=== PATIENT | female | born 1950 | race Caucasian/White ===

== ENCOUNTER 2017-02-25 17:48 | Inpatient (IN) | payer OTHER, MEDICARE ==
[~2017-02-25] VITALS: Ht 162.6 cm; Wt 65.0 kg
[2017-02-25 17:57] VITALS: BP 147/82; PULSE 107; RESP 16; TEMP 98.2; O2SAT 100
[2017-02-25] MEDS ORDERED: ATOR40TA16 PO (18:10)
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
[2017-02-25] MEDS ORDERED: LIDOCAINE HCL 1% 50 ML VIAL INFIL ONE (18:15)
[2017-02-25] MEDS ORDERED: TETANUS/DIPHTHERIA TOXOID ADULT 0.5 ML VIAL IM ONE (18:15)
[2017-02-25 18:53] LABS: AUTOMATED NEUTROPHIL # 9.9 TH/MM3 (1.8-7.7); BASOPHIL % 0.3 % (0.0-2.0); EOSINOPHIL # 0.1 TH/MM3 (0-0.4); HEMATOCRIT 40.5 % (35.0-46.0); HEMOGLOBIN 14.1 GM/DL (11.6-15.3); LYMPH % 6.3 % (9.0-44.0); LYMPHOCYTE # 0.7 TH/MM3 (1.0-4.8); MEAN CELL VOLUME 89.6 FL (80.0-100.0); MEAN CORPUSCULAR HEMOGLOBIN 31.2 PG (27.0-34.0); MEAN CORPUSCULAR HGB CONC 34.8 % (32.0-36.0); MEAN PLATELET VOLUME 9.8 FL (7.0-11.0); MONO % 6.3 % (0.0-8.0); MONOCYTE # 0.7 TH/MM3 (0-0.9); NEUT % 86.1 % (16.0-70.0); PLATELET COUNT 285 TH/MM3 (150-450); RED BLOOD COUNT 4.52 MIL/MM3 (4.00-5.30); RED CELL DISTRIBUTION WIDTH 13.1 % (11.6-17.2); WHITE BLOOD COUNT 11.5 TH/MM3 (4.0-11.0)
[2017-02-25] MEDS ORDERED: MIDAZOLAM HCL 2 MG/2 ML VIAL IV PUSH ONE (19:00)
--- NOTE | 2017-02-25 19:11 | PD ---
Data Data Last Documented VS Vital Signs Date Time Temp Pulse Resp B/P (MAP) Pulse Ox O2 Delivery O2 Flow Rate FiO2 02/25/17 17:57 98.2 107 16 147/82 (103) 100 Orders Orders Complete Blood Count With Diff (02/25/17 18:03) Comprehensive Metabolic Panel (02/25/17 18:03) Psych Screen (02/25/17 18:03) Drug Screen, Random Urine (02/25/17 18:03) Alcohol (Ethanol) (02/25/17 18:03) Tetanus/Diphtheria Tox Adult (Tetanus/Di (02/25/17 18:15) Lidocaine 1% Inj (50 Ml) (Xylocaine 1% I (02/25/17 18:15) Cefazolin Inj (Ancef Inj) (02/25/17 18:15) Midazolam Inj (Versed Inj) (02/25/17 19:00) Labs Laboratory Tests Test 02/25/17 16:32 02/25/17 18:18 Urine Opiates Screen NEG Urine Barbiturates Screen NEG Urine Amphetamines Screen NEG Urine Benzodiazepines Screen NEG Urine Cocaine Screen NEG Urine Cannabinoids Screen NEG White Blood Count 11.5 TH/MM3 Red Blood Count 4.52 MIL/MM3 Hemoglobin 14.1 GM/DL Hematocrit 40.5 % Mean Corpuscular Volume 89.6 FL Mean Corpuscular Hemoglobin 31.2 PG Mean Corpuscular Hemoglobin Concent 34.8 % Red Cell Distribution Width 13.1 % Platelet Count 285 TH/MM3 Mean Platelet Volume 9.8 FL Neutrophils (%) (Auto) 86.1 % Lymphocytes (%) (Auto) 6.3 % Monocytes (%) (Auto) 6.3 % Eosinophils (%) (Auto) 1.0 % Basophils (%) (Auto) 0.3 % Neutrophils # (Auto) 9.9 TH/MM3 Lymphocytes # (Auto) 0.7 TH/MM3 Monocytes # (Auto) 0.7 TH/MM3 Eosinophils # (Auto) 0.1 TH/MM3 Basophils # (Auto) 0.0 TH/MM3 CBC Comment DIFF FINAL Differential Comment MDM Supervised Visit with CLEO: Yes Narrative Course The history, exam, and medical decision-making in the associated midlevel provider note were completed with my assistance. I reviewed and agree with the findings presented. I attest that I had a [id number] encounter with the patient on the same day, and personally performed and documented my assessment and findings in the medical record. *My assessment and Findings: This is a 66-year-old female who presents to the emergency department under a Ledesma act for schizophrenia. She has bizarre behavior and paranoid delusions. She does have a significant avulsion injury flap to her left hand with no neurovascular or tendon injury evident. This will be repaired by the nurse practitioner. Patient will be evaluated by psychiatry. Kelly Velazquez MD Feb 25, 2017 19:11
[2017-02-25 21:05] VITALS: BP 150/81; PULSE 94; RESP 20; TEMP 97.9; O2SAT 98
[2017-02-25 22:25] VITALS: BP 149/76; PULSE 84; RESP 22
[2017-02-25 22:41] LABS: BACTERIA, URINE FEW /hpf; BILIRUBIN, URINE NEG (NEG); BLOOD, URINE NEG (NEG); CALCIUM OXALATE CRYSTALS,URINE OCC /hpf; GLUCOSE,URINE NEG (NEG); KETONE, URINE 10 mg/dL (NEG); MUCUS URINE MOD /lpf (OCC); NITRITE,URINE NEG (NEG); PH, URINE 5.5 (5.0-8.5); SQUAMOUS EPITHELIAL CELL URINE 6 /hpf (0-5); URINE COLOR YELLOW (YELLW/STRAW); URINE LEUKOCYTE ESTERASE LARGE (NEG)
[2017-02-25 22:46] LABS: ALBUMIN 4.2 GM/DL (3.4-5.0); ALT (GPT) 56 U/L (10-53); AST (GOT) 53 U/L (15-37); BICARBONATE 23.7 MEQ/L (21.0-32.0); BLOOD UREA NITROGEN 12 MG/DL (7-18); CALCIUM 9.3 MG/DL (8.5-10.1); CHLORIDE 105 MEQ/L (98-107); CREATININE 0.84 MG/DL (0.50-1.00); GLOMERULAR FILTRATION RATE 68 ML/MIN (>89); GLUCOSE,RANDOM 92 MG/DL (74-106); SODIUM (NA) 138 MEQ/L (136-145)
[2017-02-25 22:49] LABS: ALKALINE PHOSPHATASE 84 U/L (45-117); TOTAL BILIRUBIN ADULT 0.7 MG/DL (0.2-1.0); TOTAL PROTEIN 7.6 GM/DL (6.4-8.2)
[2017-02-25] MEDS ORDERED: OLANZapine IM 10 MG VIAL IM ONE ×2 (23:15→23:30)
[2017-02-25] MEDS ORDERED: diphenhydrAMINE HCL 50 MG/ML VIAL - HS PRN IM (23:30)
[2017-02-25] MEDS ORDERED: ALUMINUM/MAGNESIUM/SIMETH 30 ML CUP PO PRN (23:30)
[2017-02-25] MEDS ORDERED: LORazepam 0.5 MG TAB age > 65 yrs PO PRN (23:30)
[2017-02-25] MEDS ORDERED: MAGNESIUM HYDROXIDE SUSP 30 ML CUP PO PRN (23:30)
[2017-02-25] MEDS ORDERED: diphenhydrAMINE HCL 50 MG CAP - HS PRN PO (23:30)
[2017-02-26] MEDS: CEPHALEXIN MONOHYDRATE 500 MG CAP PO SCH ×5 (05:27→23:16)
[2017-02-26 06:05] VITALS: BP 151/74; PULSE 121; RESP 18; TEMP 98.3; O2SAT 99
[2017-02-26] MEDS: ACETAMINOPHEN 325 MG TAB PO PRN ×2 (08:36→16:00)
[2017-02-26] MEDS: NICOTINE 21 MG/24 HR PATCH T-DERMAL SCH (09:00)
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
--- NOTE | 2017-02-26 12:52 | PD.WCN.NOT ---
Wound Consult Description: Consult for WOUND MANAGEMENT of L wrist avulsion injury per Dr Ramires. Recommendation: Per [facility] Artis notes, Sutures placed on left hand, left wrist, are to be kept clean and dry. May cleanse sutures with NS and pat dry. May cover sutures with single layer Xeroform, 4x4, secured with rolled gauze and change daily and PRN when soiled. Additional Information: Patient not seen for intact sutures to left hand and wrist. Please keep sutures clean and dry per AL[facility] Abrams. Riddhi Herron [facility] Feb 26, 2017 12:52
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
[2017-02-26 16:26] LABS: ALBUMIN 3.6 GM/DL (3.4-5.0); ALKALINE PHOSPHATASE 73 U/L (45-117); ALT (GPT) 51 U/L (10-53); AST (GOT) 55 U/L (15-37); BICARBONATE 28.4 MEQ/L (21.0-32.0); BLOOD UREA NITROGEN 16 MG/DL (7-18); CALCIUM 8.7 MG/DL (8.5-10.1); CHLORIDE 105 MEQ/L (98-107); CREATININE 0.83 MG/DL (0.50-1.00); GLOMERULAR FILTRATION RATE 69 ML/MIN (>89); GLUCOSE,RANDOM 116 MG/DL (74-106); SODIUM (NA) 137 MEQ/L (136-145); TOTAL BILIRUBIN ADULT 0.7 MG/DL (0.2-1.0); TOTAL PROTEIN 6.8 GM/DL (6.4-8.2)
[2017-02-26 16:30] LABS: AUTOMATED NEUTROPHIL # 6.3 TH/MM3 (1.8-7.7); BASOPHIL % 0.3 % (0.0-2.0); EOSINOPHIL # 0.1 TH/MM3 (0-0.4); EOSINOPHIL % 1.3 % (0.0-4.0); LYMPH % 13.2 % (9.0-44.0); LYMPHOCYTE # 1.1 TH/MM3 (1.0-4.8); MEAN CELL VOLUME 89.2 FL (80.0-100.0); MEAN CORPUSCULAR HEMOGLOBIN 30.6 PG (27.0-34.0); MEAN CORPUSCULAR HGB CONC 34.3 % (32.0-36.0); MEAN PLATELET VOLUME 9.7 FL (7.0-11.0); MONO % 11.9 % (0.0-8.0); NEUT % 73.3 % (16.0-70.0); PLATELET COUNT 244 TH/MM3 (150-450); RED BLOOD COUNT 3.92 MIL/MM3 (4.00-5.30); RED CELL DISTRIBUTION WIDTH 12.9 % (11.6-17.2); WHITE BLOOD COUNT 8.5 TH/MM3 (4.0-11.0)
--- NOTE | 2017-02-26 16:54 | RADRPT ---
EXAM DATE/TIME: 02/26/2017 16:29 [place] COMPARISON: No previous studies available for comparison. INDICATIONS : Altered mental status. RADIATION DOSE: 47.09 CTDIvol (mGy) MEDICAL HISTORY : Schizophrenia SURGICAL HISTORY : None. ENCOUNTER: Initial ACUITY: 1 day PAIN SCALE: 0/10 LOCATION: cranial TECHNIQUE: Multiple contiguous axial images were obtained of the head. Using automated exposure control and adj ustment of the mA and/or kV according to patient size, radiation dose was kept as low as reasonably a chievable to obtain optimal diagnostic quality images. DICOM format image data is available electro nically for review and comparison. FINDINGS: CEREBRUM: The ventricles are normal for age. No evidence of midline shift, mass lesion, hemorrhage or acute in farction. No extra-axial fluid collections are seen. POSTERIOR FOSSA: The cerebellum and brainstem are intact. The 4th ventricle is midline. The cerebellopontine angle i s unremarkable. EXTRACRANIAL: The visualized portion of the orbits is intact. SKULL: The calvaria is intact. No evidence of skull fracture. CONCLUSION: Negative for acute process. Duong Vergara MD FACR on February 26, 2017 at 16:51 Board Certified Radiologist. This report was verified electronically.
[2017-02-26 18:00] VITALS: BP 118/65; PULSE 80; RESP 18; TEMP 98.4
[2017-02-26] MEDS: MELATONIN 5 MG TAB PO PRN (20:13)
[2017-02-26] MEDS: REMOVE OLD NICOTINE PATCH T-DERMAL SCH (21:00)
[2017-02-26] MEDS ORDERED: ATORVASTATIN 40 MG TAB PO SCH (21:00)
[2017-02-26] MEDS: diphenhydrAMINE HCL 25 MG CAP PO PRN (23:16)
[2017-02-27] MEDS: CEPHALEXIN MONOHYDRATE 500 MG CAP PO SCH ×3 (05:37→18:00)
[2017-02-27 05:54] VITALS: BP 151/70; PULSE 89; RESP 16; TEMP 98.2; O2SAT 99
[2017-02-27 06:05] VITALS: BP 151/70; PULSE 89; RESP 16; TEMP 98.2; O2SAT 99
[2017-02-27] MEDS: NICOTINE 21 MG/24 HR PATCH T-DERMAL SCH (09:00)
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
[2017-02-27] MEDS ORDERED: POTASSIUM CHLORIDE 10 MEQ CONTROLLED RELEASE TAB PO ONE (10:30)
[2017-02-27] MEDS: risperiDONE ODT 0.25 MG TAB PO SCH ×2 (10:30→21:00)
--- NOTE | 2017-02-27 13:17 | EKG ---
Date Performed: 02/26/2017 Time Performed: 18:57:11 PTAGE: 66 years EKG: Sinus rhythm WITH SINUS ARRHYTHMIA NORMAL ECG NO PREVIOUS TRACING DOCTOR: Jacoby Buckley Interpretating Date/Time 02/27/2017 13:16:20
[2017-02-27 15:19] LABS: BICARBONATE 31.1 MEQ/L (21.0-32.0); BLOOD UREA NITROGEN 12 MG/DL (7-18); CALCIUM 9.1 MG/DL (8.5-10.1); CHLORIDE 105 MEQ/L (98-107); CHOLESTEROL 139 MG/DL (120-200); CREATININE 0.81 MG/DL (0.50-1.00); GLOMERULAR FILTRATION RATE 71 ML/MIN (>89); GLUCOSE,RANDOM 88 MG/DL (74-106); SODIUM (NA) 141 MEQ/L (136-145)
[2017-02-27 15:30] LABS: CHOLESTEROL/ HDL RATIO 2.13 RATIO; HDL CHOLESTEROL 65.2 MG/DL (40.0-60.0); LDL CHOLESTEROL 56 MG/DL (0-99); TRIGLYCERIDES 87 MG/DL (42-150)
[2017-02-27] MEDS: CHOLECALCIFEROL (VIT D3) 1000 UNIT TAB PO SCH (16:15)
[2017-02-27 17:15] LABS: HEMOGLOBIN A1C 5.2 % (4.3-6.0)
[2017-02-27] MEDS: REMOVE OLD NICOTINE PATCH T-DERMAL SCH (21:00)
[2017-02-27] MEDS: ACETAMINOPHEN 325 MG TAB PO PRN (22:54)
[2017-02-28] MEDS ORDERED: OLANZapine IM 10 MG VIAL IM ONE (00:15)
[2017-02-28] MEDS ORDERED: diphenhydrAMINE HCL 50 MG/ML VIAL IM ONE (02:30)
[2017-02-28] MEDS ORDERED: HALOPERIDOL LACTATE 5 MG/ML AMP IM ONE (02:30)
[2017-02-28] MEDS ORDERED: LORazepam 2 MG/ML VIAL IM ONE (02:30)
[2017-02-28] MEDS: CEPHALEXIN MONOHYDRATE 500 MG CAP PO SCH ×5 (06:00→22:15)
[2017-02-28 06:03] VITALS: BP 151/67; PULSE 109; RESP 18; TEMP 97.8; O2SAT 95
[2017-02-28] MEDS: NICOTINE 21 MG/24 HR PATCH T-DERMAL SCH (08:47)
[2017-02-28] MEDS: CHOLECALCIFEROL (VIT D3) 1000 UNIT TAB PO SCH (08:47)
[2017-02-28] MEDS: risperiDONE ODT 0.25 MG TAB PO SCH (09:00)
[2017-02-28] MEDS ORDERED: hydrALAZINE HCL 10 MG TAB PO PRN (10:30)
[2017-02-28 12:32] LABS: BICARBONATE 27.9 MEQ/L (21.0-32.0); CALCIUM 9.4 MG/DL (8.5-10.1); CREATININE 0.66 MG/DL (0.50-1.00); MAGNESIUM 2.4 MG/DL (1.5-2.5)
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
[2017-02-28] MEDS ORDERED: OLANZapine IM 10 MG VIAL IM PRN ×2 (14:00→14:15)
[2017-02-28] MEDS ORDERED: diphenhydrAMINE HCL 50 MG/ML VIAL IM PRN (14:15)
[2017-02-28] MEDS: diphenhydrAMINE HCL 25 MG CAP PO PRN (17:38)
[2017-02-28] MEDS: HALOPERIDOL LACTATE 5 MG/ML AMP IM PRN (17:38)
[2017-02-28] MEDS: REMOVE OLD NICOTINE PATCH T-DERMAL SCH (21:00)
[2017-02-28] MEDS ORDERED: OLANZapine ODT 5 MG TAB PO SCH (21:00)
[2017-03-01] MEDS: diphenhydrAMINE HCL 25 MG CAP PO PRN ×2 (03:29→20:05)
[2017-03-01] MEDS: MELATONIN 5 MG TAB PO PRN ×2 (03:29→20:05)
[2017-03-01] MEDS: CEPHALEXIN MONOHYDRATE 500 MG CAP PO SCH ×4 (05:31→23:55)
[2017-03-01 06:03] VITALS: BP 157/73; PULSE 72; RESP 16; TEMP 97.8; O2SAT 100
[2017-03-01] MEDS: NICOTINE 21 MG/24 HR PATCH T-DERMAL SCH (08:25)
[2017-03-01] MEDS: CHOLECALCIFEROL (VIT D3) 1000 UNIT TAB PO SCH (09:02)
--- NOTE | 2017-03-01 11:16 | HHI.PYPN ---
Subjective Chief Complaint: Psychosis/Possible NCD Remarks Patient seen and case discussed with nursing staff. Chart reviewed. Patient did require Haldol PRN yesterday afternoon. For me today, patient is intrusive and confused. Speech is rambling and thought process remains disorganized. No evident side effects from medications. No physical complaints. Review of Systems ROS Limitations: Psychotic, Poor Historian Except as stated in HPI: all other systems reviewed are Neg Mental Status Examination Appearance: Disheveled Consciousness: Alert Orientation: Person, Place (at least) Motor Activity: Normal gait, Other (no motoric abnormalities appreciated) Speech: Unremarkable Language: Adequate Fund of Knowledge: Inadequate Attention and Concentration: Easily Distracted Memory: Impaired Mood: Anxious Affect: Anxious Thought Process & Associations: Disorganized Thought Content: Bizarre thinking Hallucination Type: Other (remains internally preoccupied) Delusion Type: Bizarre, Paranoid Suicidal Ideation: No (no SI voiced) Homicidal Ideation: No (no HI voiced) Insight: Poor Judgment: Poor Results Labs Test 02/28/17 11:23 Blood Urea Nitrogen 14 MG/DL Creatinine 0.66 MG/DL Random Glucose 112 MG/DL Calcium Level 9.4 MG/DL Magnesium Level 2.4 MG/DL Sodium Level 140 MEQ/L Potassium Level 4.3 MEQ/L Chloride Level 107 MEQ/L Carbon Dioxide Level 27.9 MEQ/L Anion Gap 5 MEQ/L Estimat Glomerular Filtration Rate 90 ML/MIN Date/Time Source Procedure Growth Status 02/25/17 16:32 Urine Clean Catch Urine Culture - Final 50-100,000 CFU/ML MIXED GRAM POSITIVE... Complete Labs reviewed. BMP and magnesium level unremarkable. Vitals/IOs Vital Signs Date Time Temp Pulse Resp B/P (MAP) Pulse Ox O2 Delivery O2 Flow Rate FiO2 03/01/17 06:03 97.8 72 16 157/73 (101) 100 Intake and Output 03/01/17 03/01/17 03/02/17 08:00 16:00 00:00 Intake Total 360 ml Balance 360 ml Assessment & Plan Problem List: (1) Dementia with behavioral disturbance ICD Codes: F03.91 - Unspecified dementia with behavioral disturbance Assessment & Plan Titrate Zyprexa to 7.5mg qHS to manage psychosis in setting of suspected neurocognitive disorder. Continue to monitor on inpatient unit. Continue other medications and care as ordered. Patient's case was presented to the [place] [facility] and the patient was retained on the unit with a LO guardian. Justification for Cont. Inpt. Medication changes. Impairment in reality construction. High risk for decompensation in less restrictive environment. Discharge Planning Pending psychiatric stabilization. Request HC Surrog/Guard Advoc?: Yes Problem Qualifiers (1) Dementia with behavioral disturbance: Qualified Codes: F03.91 - Unspecified dementia with behavioral disturbance Keyur Ramires MD Mar 01, 2017 11:16
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
[2017-03-01] MEDS ORDERED: OLANZapine IM 10 MG VIAL IM PRN (13:45)
[2017-03-01] MEDS: HALOPERIDOL LACTATE 5 MG/ML AMP IM PRN (14:20)
[2017-03-01 18:00] VITALS: BP 131/61; PULSE 84; RESP 18; TEMP 97.9; O2SAT 99
[2017-03-01] MEDS: OLANZapine 2.5 MG TAB PO SCH (20:05)
[2017-03-01] MEDS: REMOVE OLD NICOTINE PATCH T-DERMAL SCH (20:10)
[2017-03-02] MEDS: CEPHALEXIN MONOHYDRATE 500 MG CAP PO SCH ×4 (05:38→23:11)
[2017-03-02 06:16] VITALS: BP 153/70; PULSE 88; RESP 18; TEMP 97.8; O2SAT 98
[2017-03-02] MEDS: NICOTINE 21 MG/24 HR PATCH T-DERMAL SCH (07:49)
[2017-03-02] MEDS: CHOLECALCIFEROL (VIT D3) 1000 UNIT TAB PO SCH (07:49)
[2017-03-02] MEDS: HALOPERIDOL LACTATE 5 MG/ML AMP IM PRN ×2 (10:32→11:47)
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
[2017-03-02] MEDS: OLANZapine 2.5 MG TAB PO SCH ×2 (12:49→21:03)
[2017-03-02 12:59] LABS: HEPATITIS A AB IGM NEGATIVE (NEGATIVE); HEPATITIS B CORE AB IGM NEGATIVE (NEGATIVE); HEPATITIS B SURFACE ANTIGEN NEGATIVE (NEGATIVE); HEPATITIS C AB IgG NEGATIVE (NEGATIVE)
--- NOTE | 2017-03-02 14:16 | PD.TTN ---
Patient Problems 1. Discharge planning 2. Medication compliance 3. Knowledge deficit 4. Lack of coping skills Progress Toward Goals Provider Present: Dr. Caesar Ramires Provider Input: 03/02/17 - Dr. Ramires requested that this counselor contact patient's family for collateral information and to learn if patient has been dementing for a while and what the family's plan is for the patient's future. reported he will add a mornind dose of Zyperxa. Psychiatric Counselors Present: TERRY Walker Psych Therapist Input: 03/02/17 - Counselor will contact patient's niece, or Aunt for collateral information and to discuss disposition options. Group Spec/RT/OT/CHAMBERLAIN Present: BULMARO Sylvester Group Spec/RT/OT/CHAMBERLAIN Input: 03/02/17 - Patient is unable to tolerate groups. Discharge Plan SMA Documentation Scribe: TERRY Walker Date Resolved: Mar 02, 2017 Amparo Robles Mar 02, 2017 14:16
[2017-03-02 18:19] VITALS: BP 147/93; PULSE 97; RESP 16; TEMP 98.4; O2SAT 98
[2017-03-02] MEDS: REMOVE OLD NICOTINE PATCH T-DERMAL SCH (20:58)
[2017-03-02] MEDS: diphenhydrAMINE HCL 25 MG CAP PO PRN (21:02)
[2017-03-02] MEDS: MELATONIN 5 MG TAB PO PRN (21:02)
[2017-03-03] MEDS: CEPHALEXIN MONOHYDRATE 500 MG CAP PO SCH ×3 (06:32→17:19)
[2017-03-03 06:44] VITALS: BP 144/64; PULSE 95; RESP 18; TEMP 98; O2SAT 97
[2017-03-03] MEDS: CHOLECALCIFEROL (VIT D3) 1000 UNIT TAB PO SCH (08:41)
[2017-03-03] MEDS: OLANZapine 2.5 MG TAB PO SCH ×2 (08:41→20:53)
[2017-03-03] MEDS: NICOTINE 21 MG/24 HR PATCH T-DERMAL SCH (08:41)
[2017-03-03] MEDS: HALOPERIDOL LACTATE 5 MG/ML AMP IM PRN (10:20)
--- NOTE | 2017-03-03 16:08 | HHI.PYPN ---
Subjective Chief Complaint: Psychosis/Possible NCD Remarks Patient was seen and case discussed with nursing. Patient is quite argumentative and oppositional. She demands on taking her dressing off but was willing to stay in her room after doing so. She is somewhat entitled. Loose associations. Denies hallucinations but could be responding. 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 Complete Vitals/IOs Vital Signs Date Time Temp Pulse Resp B/P (MAP) Pulse Ox O2 Delivery O2 Flow Rate FiO2 03/03/17 06:44 98.0 95 18 144/64 (90) 97 Intake and Output 03/03/17 03/03/17 03/04/17 08:00 16:00 00:00 Intake Total 480 ml Balance 480 ml Assessment & Plan Problem List: (1) Dementia with behavioral disturbance ICD Codes: F03.91 - Unspecified dementia with behavioral disturbance Assessment & Plan Continue current treatment plan Justification for Cont. Inpt. Patient will decompensate in a less restrictive setting Request HC Surrog/Guard Advoc?: Yes Problem Qualifiers (1) Dementia with behavioral disturbance: Qualified Codes: F03.91 - Unspecified dementia with behavioral disturbance Sharath Bell DO Mar 03, 2017 16:08
[2017-03-03 18:22] VITALS: BP 132/67; PULSE 103; RESP 18; TEMP 98; O2SAT 96
[2017-03-03] MEDS: MELATONIN 5 MG TAB PO PRN (20:53)
[2017-03-03] MEDS: REMOVE OLD NICOTINE PATCH T-DERMAL SCH (21:00)
[2017-03-04] MEDS: CEPHALEXIN MONOHYDRATE 500 MG CAP PO SCH ×4 (06:02→17:55)
[2017-03-04 06:41] VITALS: BP 127/58; PULSE 84; RESP 18; TEMP 97.8; O2SAT 97
[2017-03-04] MEDS: CHOLECALCIFEROL (VIT D3) 1000 UNIT TAB PO SCH (08:21)
[2017-03-04] MEDS: NICOTINE 21 MG/24 HR PATCH T-DERMAL SCH (08:23)
[2017-03-04] MEDS: OLANZapine 2.5 MG TAB PO SCH ×3 (08:23→21:28)
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
[2017-03-04] MEDS: diphenhydrAMINE HCL 25 MG CAP PO PRN ×2 (14:33→21:29)
[2017-03-04 18:09] VITALS: BP 152/60; PULSE 90; RESP 18; TEMP 96.4; O2SAT 97
[2017-03-04] MEDS: REMOVE OLD NICOTINE PATCH T-DERMAL SCH (21:00)
[2017-03-04] MEDS: MELATONIN 5 MG TAB PO PRN (21:29)
[2017-03-05 06:43] VITALS: BP 151/68; PULSE 81; RESP 17; TEMP 97.9; O2SAT 99
[2017-03-05] MEDS: CHOLECALCIFEROL (VIT D3) 1000 UNIT TAB PO SCH (08:47)
[2017-03-05] MEDS: OLANZapine 2.5 MG TAB PO SCH (08:48)
[2017-03-05] MEDS: NICOTINE 21 MG/24 HR PATCH T-DERMAL SCH (08:48)
--- NOTE | 2017-03-05 10:40 | HHI.PR ---
Subjective Remarks Follow up for left hand skin laceration. The patient is seen ambulating the halls, brought back to her room in presence of RN. Left hand dressing removed. RN and patient report some increased redness and swelling surrounding the laceration. Denies any fevers/chills. Denies any other medical complaints. Tolerating oral intake. She is requesting to be moved to a room "downstairs". Objective Vitals Vital Signs Date Time Temp Pulse Resp B/P (MAP) Pulse Ox O2 Delivery O2 Flow Rate FiO2 03/05/17 06:43 97.9 81 17 151/68 (95) 99 03/04/17 18:09 96.4 90 18 152/60 (90) 97 I/O 03/04/17 03/04/17 03/04/17 03/05/17 03/05/17 03/05/17 07:00 15:00 23:00 07:00 15:00 23:00 Intake Total 600 ml 840 ml 720 ml 600 ml 240 ml Balance 600 ml 840 ml 720 ml 600 ml 240 ml Intake Oral 600 ml 840 ml 720 ml 600 ml 240 ml # Voids 3 1 2 2 Imaging Last Impressions Head CT 02/26/17 0000 Signed Impressions: Service Date/Time: Sunday, February 26, 2017 16:29 - CONCLUSION: Negative for acute process. Duong Vergara MD FACR Objective Remarks GENERAL: Well-nourished, well-developed female patient in [facility]. SKIN: Warm and dry. Left dorsal hand with laceration, repaired with sutures, surrounding +erythema/edema extending proximally to the wrist and distally to the MCP joints, with mild serosanguineous drainage. HEENT: Normocephalic. Atraumatic. Pupils equal and round. Mucous membranes pink and moist. CARDIOVASCULAR: Regular rate and rhythm. S1, S2 noted. No murmur appreciated. RESPIRATORY: No accessory muscle use. Clear to auscultation. Breath sounds equal bilaterally. GASTROINTESTINAL: Abdomen soft, non-tender, nondistended. Normoactive bowel sounds x4. MUSCULOSKELETAL: No obvious deformities. Extremities without clubbing, cyanosis , or edema. Able to make fist with left hand, 5/5 strength of all digits of left hand. NEUROLOGICAL: Awake and alert. No obvious cranial nerve deficits. Motor grossly within normal limits. Normal speech. Medications and IVs Current Medications Medications (Trade) Dose Ordered Sig/Josy Route Start Time Stop Time Status Last Admin (Tylenol) 650 mg Q4H PRN PO 02/25/17 23:30 02/27/17 22:54 (Milk Of Magnesia Liq) 30 ml DAILY PRN PO 02/25/17 23:30 (Mag-Al Plus Susp Liq) 30 ml Q6H PRN PO 02/25/17 23:30 (Habitrol 21 Mg Patch.24 Hr) 1 patch DAILY T-DERMAL 02/26/17 09:00 Miscellaneous Information 1 HS T-DERMAL 02/26/17 21:00 (Melatonin) 5 mg HS PRN PO 02/26/17 11:30 03/04/17 21:29 (Benadryl) 25 mg Q6H PRN PO 02/26/17 11:30 03/04/17 21:29 (Lipitor) 40 mg HS PO 02/26/17 21:00 Future Hold 02/26/17 20:13 (Vitamin D3) 2,000 units DAILY PO 02/27/17 10:30 03/05/17 08:47 (Apresoline) 10 mg Q6HR PRN PO 02/28/17 10:30 (Haldol Inj) 2 mg Q6H PRN IM 02/28/17 14:00 03/03/17 10:20 (Benadryl Inj) 25 mg Q6H PRN IM 02/28/17 14:15 03/03/17 10:29 (ZyPREXA INJ) 7.5 mg HS PRN IM 03/01/17 13:45 (ZyPREXA) 7.5 mg HS PO 03/01/17 21:00 03/04/17 21:28 (ZyPREXA) 2.5 mg DAILY PO 03/02/17 11:30 03/05/17 08:48 (Keflex) 500 mg Q8HR PO 03/05/17 14:00 UNV A/P Assessment and Plan 66-year-old female with a past medical history significant for schizophrenia and dyslipidemia who was admitted to inpatient psychiatric unit after she was brought into the ED under Ledesma act by law-enforcement due to the patient threatening her son. Schizophrenia, Acute psychosis, Medication noncompliance - Management per psychiatric team Transaminitis - Mild, asymptomatic. Patient denies any complaints of nausea, vomiting or abdominal pain. - Hold statin therapy - Would not have patient resume statin therapy until liver function tests reevaluated by primary care physician as outpatient Skin laceration left hand/wrist with Cellulitis - per wound care, cleanse sutures with NS, pat dry, cover with single layer Xeroform, 4x4, secured with rolled gauze and change daily and PRN when soiled. - Recommend suture removal in 10-14 days. - Continued on Keflex (started 02/26) however will also add Bactrim (started 03/05) Bacteruria - Patient asymptomatic - Given IV ceftriaxone in the ED - Culture showing gram positive will, probable contaminants. Withhold antibiotics. DVT prophylaxis - Patient is ambulatory Nichol Zamarripa PA-C Mar 05, 2017 10:40 am
[2017-03-05] MEDS: SULFAMETHOXAZOLE-TRIMETHOPRIM DS 800-160 MG TAB PO SCH ×2 (11:19→20:54)
--- NOTE | 2017-03-05 12:04 | HHI.PYPN ---
Subjective Chief Complaint: Psychosis/Possible NCD Remarks Patient seen and examined with nurse. Chart reviewed. I note that the patient is sleeping poorly, no more than a few hours a night. She is eating okay, though. Case discussed with nursing staff who reports that patient was very reluctant to take her morning Zyprexa. On my examination today, the patient's thought process is marginally more organized. However, she remains intrusive, paranoid, and hyperverbal with rapid speech. She is discharge focused, but her insight and judgement remain quite poor in my estimation. She denies side effects from medications. No physical complaints. Review of Systems ROS Limitations: Psychotic, Poor Historian Except as stated in HPI: all other systems reviewed are Neg Mental Status Examination Appearance: Disheveled Consciousness: Alert Orientation: Person, Place Motor Activity: Normal gait, Other (no motor abnormalities appreciated) Speech: Rapid, Other (ongoing rambling speech) Language: Adequate Fund of Knowledge: Inadequate Attention and Concentration: Easily Distracted Memory: Impaired Mood: Anxious, Irritable Affect: Irritable, Anxious Thought Process & Associations: Circumstantial Thought Content: Bizarre thinking, Delusional Hallucination Type: None Delusion Type: Paranoid Suicidal Ideation: No (unreliable to contract for safety) Homicidal Ideation: No (unreliable to contract for safety) Insight: Poor Judgment: Poor Results Labs Date/Time Source Procedure Growth Status 02/25/17 16:32 Urine Clean Catch Urine Culture - Final 50-100,000 CFU/ML MIXED GRAM POSITIVE... Complete Labs reviewed. Vitals/IOs Vital Signs Date Time Temp Pulse Resp B/P (MAP) Pulse Ox O2 Delivery O2 Flow Rate FiO2 03/05/17 06:43 97.9 81 17 151/68 (95) 99 Intake and Output 03/05/17 03/05/17 03/06/17 08:00 16:00 00:00 Intake Total 240 ml Balance 240 ml Assessment & Plan Problem List: (1) Dementia with behavioral disturbance ICD Codes: F03.91 - Unspecified dementia with behavioral disturbance Assessment & Plan Titrate nighttime dose of Zyprexa to 10 mg for mood stabilization, antipsychotic action and to assist with sleep. Continue morning dose of Zyprexa unchanged for now, although we may consider titrating this as well. Continue to monitor on inpatient unit. Hospitalist input noted and appreciated. Continue other medications and care as ordered. Justification for Cont. Inpt. Med changes. Impairment in reality construction. High risk for decompensation in less restrictive environment. Discharge Planning Pending psychiatric stabilization Request HC Surrog/Guard Advoc?: Yes Problem Qualifiers (1) Dementia with behavioral disturbance: Qualified Codes: F03.91 - Unspecified dementia with behavioral disturbance Keyur Ramires MD Mar 05, 2017 12:04
[2017-03-05] MEDS: CEPHALEXIN MONOHYDRATE 500 MG CAP PO SCH ×2 (13:48→21:53)
[2017-03-05 17:53] VITALS: BP 125/88; PULSE 89; RESP 18; TEMP 98.4; O2SAT 100
[2017-03-05] MEDS: OLANZapine 10 MG TAB PO SCH (20:54)
[2017-03-05] MEDS: REMOVE OLD NICOTINE PATCH T-DERMAL SCH (20:56)
[2017-03-05] MEDS: diphenhydrAMINE HCL 25 MG CAP PO PRN (23:28)
[2017-03-06] MEDS: HALOPERIDOL LACTATE 5 MG/ML AMP IM PRN ×2 (02:42→15:55)
[2017-03-06 05:48] VITALS: BP 137/63; PULSE 73; RESP 16; TEMP 97.6; O2SAT 98
[2017-03-06] MEDS: CEPHALEXIN MONOHYDRATE 500 MG CAP PO SCH ×3 (06:09→21:25)
--- NOTE | 2017-03-06 07:43 | HHI.PYPN ---
Subjective Chief Complaint: Psychosis/Possible NCD Remarks Patient seen and examined with nursing staff. Chart reviewed. Case discussed with nurse. Overnight, the patient slept poorly and was quite agitated and disruptive. She threatened to put blood on the nurse from her hand wound and was medicated with Haldol p.r.n.. She slept only 1 hour last night. On my examination today, the patient presents as intrusive, rambling and confused. She is distractible and pacing around the unit. She is trying to remove the dressing from her hand wound and says "I don't need a butterfly" although the bandage is not in fact a butterfly bandage. Reports dry mouth from medications but otherwise denies side effects. No physical complaints. Review of Systems ROS Limitations: Psychotic, Poor Historian Except as stated in HPI: all other systems reviewed are Neg Mental Status Examination Appearance: Other (Fair) Consciousness: Alert Orientation: Person, Place Motor Activity: Normal gait, Other (No hand tremor or other motor abnormalities noted.) Speech: Rapid, Other (remains rambling) Language: Adequate Fund of Knowledge: Inadequate Attention and Concentration: Easily Distracted Memory: Impaired Mood: Oppositional, Anxious Affect: Irritable, Labile, Anxious Thought Process & Associations: Loose associations Thought Content: Bizarre thinking Hallucination Type: None Delusion Type: None Suicidal Ideation: No (remains unreliable to contract for safety) Homicidal Ideation: No (remains unreliable to contract for safety) Insight: Poor Judgment: Poor Results Labs Labs reviewed. No new labs. Vitals/IOs Vital Signs Date Time Temp Pulse Resp B/P (MAP) Pulse Ox O2 Delivery O2 Flow Rate FiO2 03/06/17 05:48 97.6 73 16 137/63 (87) 98 Intake and Output 03/06/17 03/06/17 03/07/17 08:00 16:00 00:00 Intake Total 480 ml Balance 480 ml Assessment & Plan Problem List: (1) Dementia with behavioral disturbance ICD Codes: F03.91 - Unspecified dementia with behavioral disturbance Assessment & Plan Patient with ongoing behavioral disturbance in setting of suspected neurocognitive disorder. However, with the benefit of further observation, patient's psychiatric disturbance seems to have features of e.g. a mixed or manic state. Patient has an uncertain psychiatric history. Thus, while some degree of neurocognitive disorder is suspected, I will request a neuropsychology consultation to try to get a sense of how much of patient's poor performance on mental status testing can be attributed to dementing illness and how much to more episodic psychiatric disturbance as this will have considerable impact on treatment and disposition planning. In the meantime, I will titrate Zyprexa to 5mg qAM and 10mg qHS as patient is tolerating this agent well. Biotene p.r.n. dry mouth. Continue to monitor on geropsychiatric unit. Continue other medications and care as ordered. Justification for Cont. Inpt. Medication changes. Concern for impairment in self-care, particularly in less restrictive setting. High risk for decompensation in less restrictive environment. Discharge Planning To be determined. I will discuss the case in treatment team with associate media planner today. Request HC Surrog/Guard Advoc?: Yes Problem Qualifiers (1) Dementia with behavioral disturbance: Qualified Codes: F03.91 - Unspecified dementia with behavioral disturbance Keyur Ramires MD Mar 06, 2017 07:43
[2017-03-06] MEDS: CHOLECALCIFEROL (VIT D3) 1000 UNIT TAB PO SCH (08:11)
[2017-03-06] MEDS: OLANZapine 2.5 MG TAB PO SCH (08:11)
[2017-03-06] MEDS: SULFAMETHOXAZOLE-TRIMETHOPRIM DS 800-160 MG TAB PO SCH ×2 (08:12→20:32)
[2017-03-06] MEDS: NICOTINE 21 MG/24 HR PATCH T-DERMAL SCH (08:16)
--- NOTE | 2017-03-06 14:52 | PD.HHIRCNE ---
Disclaimer Patient was given an explanation of the nature and purpose of the evaluation. Patient agreed to proceed with the evaluation and treatment plan. History Reason for Referral The patient is a 66 year old left handed female who was Ledesma Acted on 2016 with delusions of believing her son was replaced by an imposter. The patient reportedly has a history of schizophrenia with ECT in the past, but this impression is not substantiated. On admission, her MOCA score was 10/30. Since her admission, she has remained agitated, wanting to leave with minimal insight and awareness. Her WBC is normal and her NA is 140. Her admission head CT was within normal limits. She is now referred for baseline neuropsychological evaluation to assess cognitive, behavioral and emotional aspects of the injury and to provide treatment recommendations. As background, she graduated high school with no reports of learning difficulties, grade repetitions or behavioral issues. She reportedly attended one year of college but did not earn a degree. 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 She reported that she is single, never , and has two children. She said she lives in an apartment in [place], [place]. 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 Prior Living Setting: Home Past Surgical/Medical History Past Surgery: No Major surgery in last 100 days: Unknown Hx Seizures: No Hx of Cardiovascular Prob: No ?: Not Hx Diabetes: No Hx of Hearing or Ear Problems: No Hx Dental Problems: No Hx Psychiatric Problems: No Blood Transfusion History Will receive Blood /Blood prod: Yes Medication Active Medications Cephalexin Monohydrate (Keflex) 500 mg Q8HR PO Last administered on 03/06/17 13:45; Admin Dose 500 MG; Start 03/05/17 at 14:00; Stop 03/12/17 at 23:00 Olanzapine (ZyPREXA) 5 mg DAILY PO Last administered on 03/06/17 08:11; Admin Dose 5 MG; Start 03/06/17 at 09:00 Olanzapine (ZyPREXA) 10 mg HS PO Last administered on 03/05/17 20:54; Admin Dose 10 MG; Start 03/05/17 at 21:00 Mental Status Assessment Orientation: oriented to Self, oriented to Place, oriented to Time, disoriented to Situation Mental Status: WFL: Language/Interactions, Learning/Memory, Visuospatial/ Construction, Impaired: Thought processing, Attention, Problem-Solving Adjustment/Coping Assessment Adjustment/Coping: None: Depression, Anxiety, Pain, Apathy, Severe: Awareness, Insight Observation In terms of emotional functioning, the patient demonstrated challenges. This patient demonstrated no signs of impulsivity, but she did appear somewhat agitated and disinhibited; there was remarkable evidence of a formal thought disorder or psychosis, specifically related to her complete lack of understanding and insight into the reasons for her present hospitalization. There was no evidence of depression or anxiety. The Geriatric Depression Scale- Short Form was administered given the ease to which it is administered to persons with known neurological pathology, and the patient endorsed 0 of 15 symptoms, which falls within the non depressed range. Thought content was free from suicidal or homicidal ideation, positive for paranoid ideation related to malevolent ideas attributed to her son concerning her present hospitalization, and thought processes were tangential and concrete. The patients mood was anxious and her affect was intense. The patient appears to possess very poor insight and awareness into her situation and within the limits of this brief evaluation, poor judgment. LTG Status: Deferred STG Status: Deferred Team Members: Physician, Neuropsychologist Effort Assessment Effort: Average Cognition Assessment Rating: WFL: Language, Immediate & Delayed Memor, Visual Perception, Spatial Judgement, Variable: Attention/Processing, Impaired: Executive, Awareness- Insight Adjustm Observation The patient was alert and oriented to person, place and time but not clearly concerning the circumstances surrounding the recent hospitalization. The Mini- Mental State Exam was administered, and the patient obtained a score of 27 out of 30 points, which falls in the normal range. Of note, this score represents an improvement compared to her MOCA on her initial admission. However, on further evaluation, specific deficits were identified. In terms of attention skills, the patient exhibited challenges. The patient was able to remain on task and remember basic and many complex verbal instructions. The patient was not able to spell WORLD backwards although her inability to do so could be attributed to the testing environment. In terms of memory functioning, the patient exhibited normal abilities. The patients initial registration of verbal information was relatively normal, and the patient was able to improve her memory with repetition. After a period of delay, the patient was able to recall the majority of this information from memory and recognition cues further facilitated her recall ability. More specifically, on the Luria Memory Words Test-Short Form, the patients trial one performance was 4 of 7 words, trial five performance was 7 of 7 words, the patients Total Learning score was 28 (above cut-off), and the patients Delayed recall score was 4 of 7 words ( above cut-off). In terms of speech and language skills, the patient demonstrated normal abilities. The patients initiated spontaneous conversation throughout the assessment. Speech was characterized by adequate prosody, grammar, articulation, volume and rate. No remarkable dysnomic or paraphasic errors were noted either during conversational speech or on confrontation naming tasks. Reading recognition skills were adequate, as were writing skills. The patients comprehension for basic one- and two-stage commands was normal as well as for basic verbal instructions. Furthermore, the patient earned an Index score of 84 (percentile rank of 14) on the Reading subtest of the WRAT-4. This score is essentially consistent with baseline expectations of her intellectual functioning as a whole. In terms of problem- solving skills, the patient exhibited challenges. The patients ability to understand abstraction reasoning was abnormal as reflected in her inability to abstract essential shared characteristics of objects and concepts. Her mathematical reasoning skills were also abnormal, due in large part to her fluctuating attention skills. Speed of information processing, as evaluated by both the Letter and Category Fluency Tests was below normal. In terms of visuospatial/constructional abilities, the patient performance was relatively normal. Finally, there was no evidence of ideomotor apraxia or constructional difficulties during this brief evaluation. Summary/Diagnosis Summary This 66 year old woman admitted under Ledesma Act on 02/26/2017 for delusional ideation related to believing that her son was replaced by an imposter. Metabolic studies were normal as were head CT. Her neuropsychological evaluation, albeit brief and complicated by test ecology issues (loud room) yet still considered a valid assessment overall, demonstrates primary deficit of executive function, processing speed, abstract reasoning, thought processing and ability to focus and sustain attention, although in general her memory, learning and language skills are intact. Intellectually, she should function in the Low Average range from a baseline perspective. Her admission MOCA score was 10, and today her MMSE score was 27, clearly an improvement. 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 Historically, she has a prior diagnosis of unknown psychiatric difficulties, perhaps some disorder on the schizophrenic spectrum for which executive dysfunction of the type she exhibits often plays a part. 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 Diagnostically, I do not believe she has a primary dementing disorder (owing that her memory is too intact and she is without demonstrable neuroimaging findings), but certainly her executive dysfunction in light of and exacerbated her history of psychiatric state leads to the conclusion that she does have a neurocognitive component to her clinical presentation. Diagnosis: (1) Executive function deficit Recommendations Recommendations Recommendations In terms of recommendations, in her present clinical state, it is my clinical opinion that this patient does not exhibit cognitive decision making capacity to make decisions of a legal, financial or medical nature at this point in time. She demonstrates the impaired ability to appreciate a situation and its likely consequences, and she demonstrates the impaired ability to manipulate information rationally. It would be my clinical opinion that this patient requires additional psychiatric treatment to restore her back to her condition prior to her hospitalization, and in fact her improvement on basic psychometric studies thus far demonstrate that anticipated clinical improvement. She will require psychiatric follow-up when she is finally discharged, and she will need to be compliant with her medication regimen. Additional clinical investigations could be beneficial to the current diagnostic formulation. Specifically, PET or SPECT to ascertain whether there are areas of hypometabolism present to suggest a neurodegenerative cause, although the overall treatment approach will unlikely deviate from the current course. Session Attendance Variance 60 minutes. Martínez Ashton PhD Mar 06, 2017 2:52 pm
[2017-03-06 18:32] VITALS: BP 119/68; PULSE 72; RESP 18; TEMP 98.3; O2SAT 99
[2017-03-06] MEDS: OLANZapine 10 MG TAB PO SCH (20:32)
[2017-03-06] MEDS: diphenhydrAMINE HCL 25 MG CAP PO PRN (20:32)
[2017-03-06] MEDS: REMOVE OLD NICOTINE PATCH T-DERMAL SCH (20:37)
[2017-03-07] MEDS: HALOPERIDOL LACTATE 5 MG/ML AMP IM PRN (03:02)
[2017-03-07 05:55] VITALS: BP 129/61; PULSE 75; RESP 17; TEMP 98; O2SAT 98
[2017-03-07] MEDS: CEPHALEXIN MONOHYDRATE 500 MG CAP PO SCH ×3 (06:07→23:03)
[2017-03-07] MEDS: SULFAMETHOXAZOLE-TRIMETHOPRIM DS 800-160 MG TAB PO SCH ×2 (08:34→20:17)
[2017-03-07] MEDS: OLANZapine 2.5 MG TAB PO SCH (08:34)
[2017-03-07] MEDS: CHOLECALCIFEROL (VIT D3) 1000 UNIT TAB PO SCH (08:34)
[2017-03-07] MEDS: NICOTINE 21 MG/24 HR PATCH T-DERMAL SCH (08:37)
--- NOTE | 2017-03-07 11:23 | HHI.PYPN ---
Subjective Chief Complaint: Psychosis/Possible NCD Remarks Patient seen and examined with nurse. Chart reviewed. Case discussed with nursing staff reports the patient required Haldol p.r.n. overnight as the patient was disrobing. On my examination today, the patient is fidgety, distractible, impulsive and quite intrusive. She is extremely discharge focused and even tries to get out through the day area door instead of returning from the consulting room to the unit, although she is able to be redirected onto the unit by nurse and myself. Affect is irritable and dysphoric. I did have a discussion with the patient about her differential diagnosis and treatment plan at a level appropriate to her degree of psychiatric impairment, and she does now admit to a history of bipolar diagnosis in the past. Denies side effects from medications. Resistant to further medication management however. No physical complaints. Review of Systems ROS Limitations: Poor Historian Except as stated in HPI: all other systems reviewed are Neg Mental Status Examination Appearance: Other (Fair) Consciousness: Alert Orientation: Person, Place Motor Activity: Normal gait, Other (no abnormal motor movements noted) Speech: Rapid (and rambling) Language: Adequate Fund of Knowledge: Inadequate Attention and Concentration: Easily Distracted Memory: Impaired Mood: Oppositional, Other (dysphoric) Affect: Irritable, Anxious, Other (dysphoric) Thought Process & Associations: Loose associations Thought Content: Bizarre thinking Hallucination Type: None Delusion Type: None Suicidal Ideation: No (unreliable to contract for safety) Homicidal Ideation: No (unreliable to contract for safety) Insight: Poor Judgment: Poor Results Labs Labs reviewed. No new labs. Vitals/IOs Vital Signs Date Time Temp Pulse Resp B/P (MAP) Pulse Ox O2 Delivery O2 Flow Rate FiO2 03/07/17 05:55 98.0 75 17 129/61 (83) 98 Assessment & Plan Problem List: (1) Bipolar disorder, current episode mixed, severe, without psychotic features ICD Codes: F31.63 - Bipolar disorder, current episode mixed, severe, without psychotic features (2) Executive function deficit ICD Codes: R41.844 - Frontal lobe and executive function deficit Assessment & Plan Dr. Ashton's input reviewed in detail and appreciated. He does not suspect a dementing illness, and with the benefit of further observation I am inclined to agree. The form of patient's mental illness presently is most consistent with a severely decompensated, mixed bipolar disorder. She may have been more floridly psychotic on initial presentation although this is somewhat attenuated now. I agree that there is likely some degree of underlying executive function deficit. I have adjusted the diagnosis accordingly. Given this new information , I think it is appropriate to focus the treatment more on mood stabilization. I will check a CBC and CMP for platelet count and LFTs, respectively, in advance of a trial of Depakote. [Update: LFTs and plt ok.] Plan to start Depakote DR 250 mg twice daily with plans to check a Depakote and ammonia level after the appropriate interval. Continue Zyprexa as ordered. Continue to monitor on the inpatient unit. Hospitalist input noted and appreciated. Continue other medications and care as ordered. Justification for Cont. Inpt. medication changes. High risk for decompensation in less restrictive environment. Discharge Planning Pending psychiatric stabilization. Case discussed with counselor who has spoken with patient's son who reportedly would like to have the patient back at home once psychiatrically stabilized. Request HC Surrog/Guard Advoc?: Yes Keyur Ramires MD Mar 07, 2017 11:23
--- NOTE | 2017-03-07 13:23 | HHI.PR ---
Subjective Remarks Decreased erythema. Improved healing. Sutures not yet ready for removal at day 7. Objective Vital Signs Date Time Temp Pulse Resp B/P (MAP) Pulse Ox O2 Delivery O2 Flow Rate FiO2 03/07/17 05:55 98.0 75 17 129/61 (83) 98 03/06/17 18:32 98.3 72 18 119/68 (85) 99 I/O 03/06/17 03/06/17 03/06/17 03/07/17 03/07/17 03/07/17 07:00 15:00 23:00 07:00 15:00 23:00 Intake Total 880 ml 720 ml 240 ml Balance 880 ml 720 ml 240 ml Intake Oral 880 ml 720 ml 240 ml # Voids 5 Other Results GENERAL: NAD, A&Ox3 HEAD: Normocephalic. NECK: Supple, trachea midline. No lymphadenopathy. EYES: No scleral icterus. No injection or drainage. CARDIOVASCULAR: Regular rate and rhythm without murmurs, gallops, or rubs. RESPIRATORY: Breath sounds equal bilaterally. No accessory muscle use. GASTROINTESTINAL: Abdomen soft, non-tender, nondistended. MUSCULOSKELETAL: No cyanosis, or edema. SKIN: Warm and dry. Lacerations with sutures on the dorsum of left hand. NEURO: No focal neurological deficitis. A/P Problem List: (1) Executive function deficit ICD Code: R41.844 - Frontal lobe and executive function deficit (2) Dementia with behavioral disturbance ICD Code: F03.91 - Unspecified dementia with behavioral disturbance (3) Major neurocognitive disorder due to Alzheimer's disease, possible ICD Code: G30.9 - Alzheimer's disease, unspecified; F02.80 - Dementia in other diseases classified elsewhere without behavioral disturbance (4) Medical clearance for psychiatric admission ICD Code: Z00.8 - Encounter for other general examination Status: Acute (5) Hand laceration ICD Code: S61.419A - Laceration without foreign body of unspecified hand, initial encounter Status: Acute Assessment and Plan Assessment and Plan 66-year-old female admitted secondary to schizophrenia, following for left hand laceration. Schizophrenia Acute psychosis Medication noncompliance Continue Management per psychiatric team Transaminitis Holding Statin Skin laceration left hand Left Hand Cellulitis Continue wound care Sutures not yet ready for removal at a 7 Continue Keflex Continue Bactrim Bacteruria No specific bacteria grew Patient is on Keflex and Bactrim as above DVT prophylaxis Continue ambulation Problem Qualifiers (1) Dementia with behavioral disturbance: Qualified Codes: F03.91 - Unspecified dementia with behavioral disturbance (2) Hand laceration: Qualified Codes: S61.412A - Laceration without foreign body of left hand, initial encounter Robert Siddiqui MD Mar 07, 2017 13:23
[2017-03-07 13:24] LABS: AUTOMATED NEUTROPHIL # 4.1 TH/MM3 (1.8-7.7); BASOPHIL % 0.6 % (0.0-2.0); EOSINOPHIL # 0.4 TH/MM3 (0-0.4); EOSINOPHIL % 5.8 % (0.0-4.0); HEMOGLOBIN 11.5 GM/DL (11.6-15.3); LYMPH % 20.5 % (9.0-44.0); LYMPHOCYTE # 1.3 TH/MM3 (1.0-4.8); MEAN CELL VOLUME 89.1 FL (80.0-100.0); MEAN CORPUSCULAR HGB CONC 33.7 % (32.0-36.0); MONO % 7.7 % (0.0-8.0); MONOCYTE # 0.5 TH/MM3 (0-0.9); NEUT % 65.4 % (16.0-70.0); PLATELET COUNT 346 TH/MM3 (150-450); RED BLOOD COUNT 3.82 MIL/MM3 (4.00-5.30); RED CELL DISTRIBUTION WIDTH 13.1 % (11.6-17.2); WHITE BLOOD COUNT 6.3 TH/MM3 (4.0-11.0)
[2017-03-07 13:38] LABS: ALBUMIN 3.1 GM/DL (3.4-5.0); AST (GOT) 36 U/L (15-37); BICARBONATE 26.9 MEQ/L (21.0-32.0); BLOOD UREA NITROGEN 14 MG/DL (7-18); CALCIUM 8.6 MG/DL (8.5-10.1); CHLORIDE 105 MEQ/L (98-107); CREATININE 0.93 MG/DL (0.50-1.00); GLOMERULAR FILTRATION RATE 60 ML/MIN (>89); GLUCOSE,RANDOM 116 MG/DL (74-106); SODIUM (NA) 139 MEQ/L (136-145)
[2017-03-07 13:43] LABS: ALKALINE PHOSPHATASE 88 U/L (45-117); ALT (GPT) 36 U/L (10-53); TOTAL BILIRUBIN ADULT 0.3 MG/DL (0.2-1.0); TOTAL PROTEIN 6.5 GM/DL (6.4-8.2)
[2017-03-07 18:11] VITALS: BP 151/68; PULSE 87; RESP 16; TEMP 98; O2SAT 99
[2017-03-07] MEDS: DIVALPROEX SODIUM DELAYED RELEASE 250 MG TAB PO SCH (20:17)
[2017-03-07] MEDS: diphenhydrAMINE HCL 25 MG CAP PO PRN (20:17)
[2017-03-07] MEDS: OLANZapine 10 MG TAB PO SCH (20:18)
[2017-03-07] MEDS: REMOVE OLD NICOTINE PATCH T-DERMAL SCH (21:00)
[2017-03-07] MEDS: MELATONIN 5 MG TAB PO PRN (23:03)
[2017-03-08] MEDS: HALOPERIDOL LACTATE 5 MG/ML AMP IM PRN (02:01)
[2017-03-08 06:00] VITALS: BP 153/67; PULSE 87; RESP 17; TEMP 97.4; O2SAT 99
[2017-03-08] MEDS: CEPHALEXIN MONOHYDRATE 500 MG CAP PO SCH ×3 (06:16→21:23)
[2017-03-08] MEDS: SULFAMETHOXAZOLE-TRIMETHOPRIM DS 800-160 MG TAB PO SCH ×2 (08:27→21:23)
[2017-03-08] MEDS: OLANZapine 2.5 MG TAB PO SCH (08:27)
[2017-03-08] MEDS: CHOLECALCIFEROL (VIT D3) 1000 UNIT TAB PO SCH (08:27)
[2017-03-08] MEDS: DIVALPROEX SODIUM DELAYED RELEASE 250 MG TAB PO SCH ×2 (08:28→21:23)
[2017-03-08] MEDS: NICOTINE 21 MG/24 HR PATCH T-DERMAL SCH (09:00)
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
[2017-03-08 21:00] VITALS: BP 128/58; PULSE 73; RESP 18; O2SAT 95
[2017-03-08] MEDS: REMOVE OLD NICOTINE PATCH T-DERMAL SCH (21:00)
[2017-03-09] MEDS: diphenhydrAMINE HCL 25 MG CAP PO PRN (01:04)
[2017-03-09] MEDS: MELATONIN 5 MG TAB PO PRN ×2 (01:04→21:10)
[2017-03-09 06:00] VITALS: BP 113/66; PULSE 70; RESP 16; TEMP 97.8; O2SAT 96
[2017-03-09] MEDS: CEPHALEXIN MONOHYDRATE 500 MG CAP PO SCH ×3 (06:00→21:09)
[2017-03-09] MEDS: OLANZapine 2.5 MG TAB PO SCH (08:52)
[2017-03-09] MEDS: CHOLECALCIFEROL (VIT D3) 1000 UNIT TAB PO SCH (08:52)
[2017-03-09] MEDS: SULFAMETHOXAZOLE-TRIMETHOPRIM DS 800-160 MG TAB PO SCH ×2 (08:52→21:10)
[2017-03-09] MEDS: DIVALPROEX SODIUM DELAYED RELEASE 250 MG TAB PO SCH ×2 (08:53→21:10)
[2017-03-09] MEDS: NICOTINE 21 MG/24 HR PATCH T-DERMAL SCH (09:00)
[2017-03-09 10:05] LABS: AUTOMATED NEUTROPHIL # 4.6 TH/MM3 (1.8-7.7); BASOPHIL % 0.5 % (0.0-2.0); EOSINOPHIL # 0.4 TH/MM3 (0-0.4); EOSINOPHIL % 5.5 % (0.0-4.0); HEMATOCRIT 35.8 % (35.0-46.0); HEMOGLOBIN 12.2 GM/DL (11.6-15.3); LYMPH % 18.5 % (9.0-44.0); LYMPHOCYTE # 1.3 TH/MM3 (1.0-4.8); MEAN CELL VOLUME 90.6 FL (80.0-100.0); MEAN CORPUSCULAR HGB CONC 34.2 % (32.0-36.0); MEAN PLATELET VOLUME 9.1 FL (7.0-11.0); MONO % 9.1 % (0.0-8.0); MONOCYTE # 0.6 TH/MM3 (0-0.9); NEUT % 66.4 % (16.0-70.0); PLATELET COUNT 381 TH/MM3 (150-450); RED BLOOD COUNT 3.95 MIL/MM3 (4.00-5.30); RED CELL DISTRIBUTION WIDTH 13.2 % (11.6-17.2)
[2017-03-09 10:40] LABS: BICARBONATE 28.3 MEQ/L (21.0-32.0); CALCIUM 8.8 MG/DL (8.5-10.1); CREATININE 0.92 MG/DL (0.50-1.00)
--- NOTE | 2017-03-09 10:58 | HHI.PYPN ---
Subjective Chief Complaint: Psychosis/Possible NCD Remarks Patient seen and examined with nurse. Chart reviewed. Case discussed with nursing staff who reports that the patient passed an uneventful night and did not require any p.r.n.s. Case discussed in treatment team with counselor and occupational therapist, the latter of whom notes that the patient appears less delusional. On my examination today, the patient seems considerably calmer with medication adjustment. She is more appropriate and relevant in conversation. She does not verbalize any delusional material today. No SI or HI. Denies side effects from medications besides some dry mouth, and I have encouraged her to ask for the Biotene. No physical complaints otherwise. Review of Systems Except as stated in HPI: all other systems reviewed are Neg Mental Status Examination Appearance: Appropriate Consciousness: Alert Orientation: Person, Place, Date/Time (approximate) Motor Activity: Normal gait, Other (no motor abnormalities noted) Speech: Unremarkable Language: Adequate Fund of Knowledge: Adequate Attention and Concentration: Easily Distracted (but improving) Memory: Unremarkable Mood: Appropriate Affect: Appropriate Thought Process & Associations: Other (much more linear and logical today) Thought Content: Appropriate Hallucination Type: None Delusion Type: None Suicidal Ideation: No (no SI voiced) Homicidal Ideation: No (no HI voiced) Insight: Poor Judgment: Poor Results Labs Test 03/09/17 08:30 White Blood Count 7.0 TH/MM3 Red Blood Count 3.95 MIL/MM3 Hemoglobin 12.2 GM/DL Hematocrit 35.8 % Mean Corpuscular Volume 90.6 FL Mean Corpuscular Hemoglobin 31.0 PG Mean Corpuscular Hemoglobin Concent 34.2 % Red Cell Distribution Width 13.2 % Platelet Count 381 TH/MM3 Mean Platelet Volume 9.1 FL Neutrophils (%) (Auto) 66.4 % Lymphocytes (%) (Auto) 18.5 % Monocytes (%) (Auto) 9.1 % Eosinophils (%) (Auto) 5.5 % Basophils (%) (Auto) 0.5 % Neutrophils # (Auto) 4.6 TH/MM3 Lymphocytes # (Auto) 1.3 TH/MM3 Monocytes # (Auto) 0.6 TH/MM3 Eosinophils # (Auto) 0.4 TH/MM3 Basophils # (Auto) 0.0 TH/MM3 CBC Comment DIFF FINAL Differential Comment Blood Urea Nitrogen 18 MG/DL Creatinine 0.92 MG/DL Random Glucose 59 MG/DL Calcium Level 8.8 MG/DL Sodium Level 140 MEQ/L Potassium Level 3.6 MEQ/L Chloride Level 103 MEQ/L Carbon Dioxide Level 28.3 MEQ/L Anion Gap 9 MEQ/L Estimat Glomerular Filtration Rate 61 ML/MIN Date/Time Source Procedure Growth Status 02/25/17 16:32 Urine Clean Catch Urine Culture - Final 50-100,000 CFU/ML MIXED GRAM POSITIVE... Complete Labs reviewed. Anemia improved. GFR stable. Vitals/IOs Vital Signs Date Time Temp Pulse Resp B/P (MAP) Pulse Ox O2 Delivery O2 Flow Rate FiO2 03/09/17 06:00 97.8 70 16 113/66 (82) 96 Intake and Output 03/09/17 03/09/17 03/10/17 08:00 16:00 00:00 Intake Total 960 ml Balance 960 ml Assessment & Plan Problem List: (1) Bipolar disorder, current episode mixed, severe, with psychotic features ICD Codes: F31.64 - Bipolar disorder, current episode mixed, severe, with psychotic features (2) Executive function deficit ICD Codes: R41.844 - Frontal lobe and executive function deficit Assessment & Plan Patient seems to be improving with current Depakote/Zyprexa regimen. I will continue with current medications as ordered for now and plan to check a Depakote and ammonia level Sunday morning. However, should the patient's mood decompensate over the weekend, I would ask the weekend rounding physician to consider titrating the patient's Depakote. Continue to monitor on the inpatient unit. Continue other medications and care as ordered. Justification for Cont. Inpt. Risk for decompensation in less restrictive environment. Discharge Planning Pending psychiatric stabilization. Possible discharge after the weekend. Could consider HHC if patient is willing. Request HC Surrog/Guard Advoc?: Yes Keyur Ramires MD Mar 09, 2017 10:57
[2017-03-09 18:00] VITALS: BP 132/60; PULSE 84; RESP 18; TEMP 97.4; O2SAT 98
[2017-03-09] MEDS: REMOVE OLD NICOTINE PATCH T-DERMAL SCH (21:00)
[2017-03-10] MEDS: CEPHALEXIN MONOHYDRATE 500 MG CAP PO SCH ×3 (05:54→21:39)
[2017-03-10 06:28] VITALS: BP 140/60; PULSE 81; RESP 16; TEMP 97.9; O2SAT 98
[2017-03-10] MEDS: SULFAMETHOXAZOLE-TRIMETHOPRIM DS 800-160 MG TAB PO SCH ×2 (08:32→21:39)
[2017-03-10] MEDS: CHOLECALCIFEROL (VIT D3) 1000 UNIT TAB PO SCH (08:33)
[2017-03-10] MEDS: OLANZapine 2.5 MG TAB PO SCH (08:34)
[2017-03-10] MEDS: DIVALPROEX SODIUM DELAYED RELEASE 250 MG TAB PO SCH ×2 (08:36→21:39)
[2017-03-10] MEDS: NICOTINE 21 MG/24 HR PATCH T-DERMAL SCH (08:47)
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
--- NOTE | 2017-03-10 14:48 | HHI.PYPN ---
Subjective Chief Complaint: Psychosis/Possible NCD Remarks Pt seen and discussed with staff. She has been more calm and cooperative on unit. She remains delusional and confused but has been more oriented in reality. Compliant with medications. Mental Status Examination Appearance: Appropriate Consciousness: Alert Orientation: Person, Place, Date/Time (approximate) Motor Activity: Normal gait, Other (no motor abnormalities noted) Speech: Unremarkable Language: Adequate Fund of Knowledge: Adequate Attention and Concentration: Easily Distracted (but improving) Memory: Unremarkable Mood: Appropriate Affect: Appropriate Thought Process & Associations: Other (much more linear and logical today) Thought Content: Ideas of reference Hallucination Type: None Delusion Type: Paranoid (mild) Suicidal Ideation: No Homicidal Ideation: No Insight: Poor Judgment: Poor Results Labs Date/Time Source Procedure Growth Status 02/25/17 16:32 Urine Clean Catch Urine Culture - Final 50-100,000 CFU/ML MIXED GRAM POSITIVE... Complete Vitals/IOs Vital Signs Date Time Temp Pulse Resp B/P (MAP) Pulse Ox O2 Delivery O2 Flow Rate FiO2 03/10/17 06:28 97.9 81 16 140/60 (86) 98 Intake and Output 03/10/17 03/10/17 03/11/17 08:00 16:00 00:00 Intake Total 240 ml 240 ml Balance 240 ml 240 ml Assessment & Plan Problem List: (1) Bipolar disorder, current episode mixed, severe, with psychotic features ICD Codes: F31.64 - Bipolar disorder, current episode mixed, severe, with psychotic features (2) Executive function deficit ICD Codes: R41.844 - Frontal lobe and executive function deficit Assessment & Plan Pt improving. Continue current tx plan. Estimated LOS: days Justification for Cont. Inpt. risk of decompensation Request HC Surrog/Guard Advoc?: Yes Drea Friedman MD Mar 10, 2017 14:48
[2017-03-10 18:24] VITALS: BP 131/62; PULSE 82; RESP 16; TEMP 97.6; O2SAT 97
[2017-03-10] MEDS: REMOVE OLD NICOTINE PATCH T-DERMAL SCH (21:00)
[2017-03-10] MEDS: diphenhydrAMINE HCL 25 MG CAP PO PRN (21:39)
[2017-03-11] MEDS: CEPHALEXIN MONOHYDRATE 500 MG CAP PO SCH ×3 (06:00→21:54)
[2017-03-11 06:06] VITALS: BP 147/64; PULSE 80; RESP 16; TEMP 97.5; O2SAT 99
[2017-03-11] MEDS: SULFAMETHOXAZOLE-TRIMETHOPRIM DS 800-160 MG TAB PO SCH ×2 (08:36→21:54)
[2017-03-11] MEDS: OLANZapine 2.5 MG TAB PO SCH (08:36)
[2017-03-11] MEDS: CHOLECALCIFEROL (VIT D3) 1000 UNIT TAB PO SCH (08:36)
[2017-03-11] MEDS: NICOTINE 21 MG/24 HR PATCH T-DERMAL SCH (09:00)
[2017-03-11] MEDS: DIVALPROEX SODIUM DELAYED RELEASE 250 MG TAB PO SCH ×2 (09:00→21:55)
--- NOTE | 2017-03-11 14:07 | HHI.PYPN ---
Subjective Chief Complaint: Psychosis/Possible NCD Remarks Pt seen and discussed with staff. She was labile and agitated last night. Today she has been calm and more organized. She expresses some paranoid ideations. No SI/HI. She is compliant with medications and tolerating without side effects. Mental Status Examination Appearance: Appropriate Consciousness: Alert Orientation: Person, Place, Date/Time (approximate) Motor Activity: Normal gait, Other (no motor abnormalities noted) Speech: Unremarkable Language: Adequate Fund of Knowledge: Adequate Attention and Concentration: Adequate Memory: Unremarkable Mood: Appropriate Affect: Appropriate Thought Process & Associations: Other (much more linear and logical today) Thought Content: Ideas of reference Hallucination Type: None Delusion Type: Paranoid Suicidal Ideation: No Homicidal Ideation: No Insight: Poor Judgment: Poor Results Labs Date/Time Source Procedure Growth Status 02/25/17 16:32 Urine Clean Catch Urine Culture - Final 50-100,000 CFU/ML MIXED GRAM POSITIVE... Complete Vitals/IOs Vital Signs Date Time Temp Pulse Resp B/P (MAP) Pulse Ox O2 Delivery O2 Flow Rate FiO2 03/11/17 06:06 97.5 80 16 147/64 (91) 99 Assessment & Plan Problem List: (1) Bipolar disorder, current episode mixed, severe, with psychotic features ICD Codes: F31.64 - Bipolar disorder, current episode mixed, severe, with psychotic features (2) Executive function deficit ICD Codes: R41.844 - Frontal lobe and executive function deficit Assessment & Plan Continue current tx plan. Estimated LOS: days Justification for Cont. Inpt. risk of decompensation Request HC Surrog/Guard Advoc?: Yes Drea Friedman MD Mar 11, 2017 14:07
[2017-03-11 17:10] VITALS: BP 114/53; PULSE 73; RESP 18; TEMP 98.1; O2SAT 99
[2017-03-11] MEDS: REMOVE OLD NICOTINE PATCH T-DERMAL SCH (21:00)
[2017-03-11] MEDS: MELATONIN 5 MG TAB PO PRN (21:55)
[2017-03-12 05:57] VITALS: BP 124/64; PULSE 72; RESP 18; TEMP 98; O2SAT 98
[2017-03-12] MEDS: CEPHALEXIN MONOHYDRATE 500 MG CAP PO SCH ×3 (06:12→20:39)
[2017-03-12 08:23] LABS: BICARBONATE 28.9 MEQ/L (21.0-32.0); CALCIUM 8.8 MG/DL (8.5-10.1); CREATININE 0.8 MG/DL (0.50-1.00)
[2017-03-12] MEDS: NICOTINE 21 MG/24 HR PATCH T-DERMAL SCH (09:00)
[2017-03-12] MEDS: DIVALPROEX SODIUM DELAYED RELEASE 250 MG TAB PO SCH (09:28)
[2017-03-12] MEDS: SULFAMETHOXAZOLE-TRIMETHOPRIM DS 800-160 MG TAB PO SCH (09:28)
[2017-03-12] MEDS: CHOLECALCIFEROL (VIT D3) 1000 UNIT TAB PO SCH (09:28)
[2017-03-12] MEDS: OLANZapine 2.5 MG TAB PO SCH (09:28)
--- NOTE | 2017-03-12 11:04 | HHI.PR ---
Subjective Remarks Follow up on patient with left hand laceration. Patient seen and examined. Patient states she is doing well. She is anxious to go back home and back to work. She denies any fever or chills. She denies any acute medical complaints. Discussed with GAIL Roger, no acute issues noted. 7 remaining sutures removed. Objective Vitals Vital Signs Date Time Temp Pulse Resp B/P (MAP) Pulse Ox O2 Delivery O2 Flow Rate FiO2 03/12/17 05:57 98.0 72 18 124/64 (84) 98 03/11/17 17:10 98.1 73 18 114/53 (73) 99 Result Diagram: 03/09/17 0830 03/12/17 0740 Imaging Last Impressions Head CT 02/26/17 0000 Signed Impressions: Service Date/Time: Sunday, February 26, 2017 16:29 - CONCLUSION: Negative for acute process. Duong Vergara MD FACR Objective Remarks GENERAL: Well-nourished, well-developed female patient in NAD. Awake and alert. SKIN: Warm and dry. Left dorsal hand with laceration, repaired with sutures, mid dorsal hand still very moist with yellowish exudate, surrounding areas with scabs/eschar. No erythema appreciated. Remaining 7 sutures removed. HEENT: Normocephalic. Atraumatic. EOMI. Mucous membranes pink and moist. CARDIOVASCULAR: Regular rate and rhythm. S1, S2 noted. No murmur appreciated. RESPIRATORY: Nonlabored. Clear to auscultation. Breath sounds equal bilaterally. GASTROINTESTINAL: Abdomen soft, non-tender, nondistended. Normoactive bowel sounds x4. MUSCULOSKELETAL: Extremities without clubbing, cyanosis, or edema. Able to make fist with left hand, 5/5 strength of all digits of left hand. NEUROLOGICAL: Awake and alert. No obvious cranial nerve deficits. Motor grossly within normal limits. Normal speech. PSYCHIATRIC: Calm, pleasant. Appropriate mood. Judgement and insight limited. Procedures 02/25 left hand laceration repair in the ED 03/10 suture removal x21, 7 remaining Medications and IVs Current Medications Medications (Trade) Dose Ordered Sig/Josy Route Start Time Stop Time Status Last Admin (Tylenol) 650 mg Q4H PRN PO 02/25/17 23:30 02/27/17 22:54 (Milk Of Magnesia Liq) 30 ml DAILY PRN PO 02/25/17 23:30 (Mag-Al Plus Susp Liq) 30 ml Q6H PRN PO 02/25/17 23:30 (Habitrol 21 Mg Patch.24 Hr) 1 patch DAILY T-DERMAL 02/26/17 09:00 Miscellaneous Information 1 HS T-DERMAL 02/26/17 21:00 (Melatonin) 5 mg HS PRN PO 02/26/17 11:30 03/11/17 21:55 (Benadryl) 25 mg Q6H PRN PO 02/26/17 11:30 03/09/17 01:04 (Lipitor) 40 mg HS PO 02/26/17 21:00 Future Hold 02/26/17 20:13 (Vitamin D3) 2,000 units DAILY PO 02/27/17 10:30 03/12/17 09:28 (Apresoline) 10 mg Q6HR PRN PO 02/28/17 10:30 (Haldol Inj) 2 mg Q6H PRN IM 02/28/17 14:00 03/08/17 02:01 (Benadryl Inj) 25 mg Q6H PRN IM 02/28/17 14:15 03/03/17 10:29 (ZyPREXA INJ) 7.5 mg HS PRN IM 03/01/17 13:45 (Keflex) 500 mg Q8HR PO 03/05/17 14:00 03/12/17 23:00 03/12/17 06:12 (Bactrim Ds 800-160 Mg) 1 tab Q12HR PO 03/05/17 11:00 03/12/17 10:59 03/12/17 09:28 (ZyPREXA) 5 mg DAILY PO 03/06/17 09:00 03/12/17 09:28 (Depakote Dr) 250 mg Q12HR PO 03/07/17 21:00 03/12/17 09:28 (ZyPREXA) 15 mg HS PO 03/08/17 21:00 03/11/17 21:55 A/P Assessment and Plan 66-year-old female with a past medical history significant for schizophrenia and dyslipidemia who was admitted to inpatient psychiatric unit after she was brought into the ED under Ledesma act by law-enforcement due to the patient threatening her son. Skin laceration left hand/wrist with Cellulitis - per wound care, cleanse sutures with NS, pat dry, cover with single layer Xeroform, 4x4, secured with rolled gauze and change daily and PRN when soiled. - Continued on Keflex (started 02/26) however will also add Bactrim (started 03/05) - antibiotics to be completed 03/12/17 - 03/10 removed 21 sutures, 7 remaining at the mid dorsal hand not yet ready for removal - 03/12 7 remaining sutures removed. Consult wound care for assessment and recommendations. Schizophrenia, Acute psychosis, Medication noncompliance - Management per psychiatric team Transaminitis - Mild, asymptomatic. Patient denies any complaints of nausea, vomiting or abdominal pain. - Hold statin therapy - Would not have patient resume statin therapy until liver function tests reevaluated by primary care physician as outpatient Bacteruria - Patient asymptomatic - Given IV ceftriaxone in the ED - Culture showing gram positive will, probable contaminants. Vitamin D deficiency - Vitamin D level 18.9 02/26 - continue on Vitamin D supplementation daily DVT prophylaxis - Patient is ambulatory Discussed with patient, nursing staff and Opal El Mar 12, 2017 11:04
--- NOTE | 2017-03-12 13:46 | HHI.PYPN ---
Subjective Chief Complaint: BPAD Remarks Patient seen and examined with nurse. Chart reviewed. Case discussed with nursing staff. On my examination today, the patient remains a little bit hyperverbal and intrusive, but is overall improved versus admission. She is more relevant in conversation and her thought process is much more organized. No psychotic symptoms. No Haldol required overnight. Denies side effects from medications. No physical complaints. Hopeful for discharge soon. Review of Systems Except as stated in HPI: all other systems reviewed are Neg Mental Status Examination Appearance: Appropriate Consciousness: Alert Orientation: Person, Place (at least) Motor Activity: Normal gait, Other (no motor abnormalities noted) Speech: Unremarkable Language: Adequate Fund of Knowledge: Adequate Attention and Concentration: Adequate Memory: Unremarkable Mood: Appropriate Affect: Appropriate Thought Process & Associations: Linear Thought Content: Appropriate Hallucination Type: None Delusion Type: None Suicidal Ideation: No Suicidal Plan: No Suicidal Intention: No Homicidal Ideation: No Homicidal Plan: No Homicidal Intention: No Insight: Fair Judgment: Adequate (fair) Results Labs Test 03/12/17 07:40 Blood Urea Nitrogen 12 MG/DL Creatinine 0.80 MG/DL Random Glucose 90 MG/DL Calcium Level 8.8 MG/DL Sodium Level 141 MEQ/L Potassium Level 4.4 MEQ/L Chloride Level 106 MEQ/L Carbon Dioxide Level 28.9 MEQ/L Anion Gap 6 MEQ/L Estimat Glomerular Filtration Rate 72 ML/MIN Ammonia 34 MCMOL/L Valproic Acid (Depakene) Level 33 MCG/ML Date/Time Source Procedure Growth Status 02/25/17 16:32 Urine Clean Catch Urine Culture - Final 50-100,000 CFU/ML MIXED GRAM POSITIVE... Complete Labs reviewed. GFR improved. Ammonia level mildly elevated without evidence of hyperammonemic encephalopathy. Depakote level subtherapeutic. Vitals/IOs Vital Signs Date Time Temp Pulse Resp B/P (MAP) Pulse Ox O2 Delivery O2 Flow Rate FiO2 03/12/17 05:57 98.0 72 18 124/64 (84) 98 Assessment & Plan Problem List: (1) Bipolar disorder, current episode mixed, severe, with psychotic features ICD Codes: F31.64 - Bipolar disorder, current episode mixed, severe, with psychotic features (2) Executive function deficit ICD Codes: R41.844 - Frontal lobe and executive function deficit Assessment & Plan Titrate Depakote to 250 mg in the morning and 500 mg at bedtime for mood stabilization. Plan for a follow-up Depakote and ammonia level on an outpatient basis. Add Carnitor for hyperammonemia. Continue to monitor on the inpatient unit. Continue other medications and care as ordered. Justification for Cont. Inpt. Medication change Discharge Planning Anticipate discharge within the next 1-2 days Request HC Surrog/Guard Advoc?: Yes Keyur Ramires MD Mar 12, 2017 13:46
[2017-03-12 17:00] VITALS: BP 132/54; PULSE 90; RESP 16; TEMP 98.1; O2SAT 95
[2017-03-12] MEDS: levOCARNitine 10% ORAL SOLN 118 ML BTL PO SCH (17:24)
[2017-03-12] MEDS: REMOVE OLD NICOTINE PATCH T-DERMAL SCH (20:41)
[2017-03-12] MEDS ORDERED: DIVALPROEX DR 500 MG TABEC PO SCH (21:00)
[2017-03-13 06:57] VITALS: BP 128/63; PULSE 85; RESP 18; TEMP 98; O2SAT 99
[2017-03-13] MEDS: CHOLECALCIFEROL (VIT D3) 1000 UNIT TAB PO SCH (08:30)
[2017-03-13] MEDS: levOCARNitine 10% ORAL SOLN 118 ML BTL PO SCH (08:36)
[2017-03-13] MEDS: OLANZapine 2.5 MG TAB PO SCH (09:00)
[2017-03-13] MEDS: NICOTINE 21 MG/24 HR PATCH T-DERMAL SCH (09:00)
[2017-03-13] MEDS ORDERED: DIVALPROEX SODIUM DELAYED RELEASE 250 MG TAB PO SCH (09:00)
[2017-03-13] MEDS ORDERED: LEVO10%S PO (09:43)
[2017-03-13] MEDS ORDERED: DIVA500T PO (09:43)
[2017-03-13] MEDS ORDERED: OLAN15TA PO (09:43)
[2017-03-13] MEDS ORDERED: CHOL1000 PO (09:43)
[2017-03-13] MEDS ORDERED: DIVA250T PO (09:43)
[2017-03-13] MEDS ORDERED: OLAN2.5T7 PO (09:43)
--- NOTE | 2017-03-13 09:43 | HHI.DS ---
Psychiatry Discharge Summary Inpatient Psychiatric care?: Yes Advance Directive: No Reason Not Provided: Due to Patient Condition Mental Health AdvanceDirective: No Health Care Proxy: No Admission Admission Date Feb 25, 2017 at 23:19 Admission Diagnosis: (1) Dementia with behavioral disturbance ICD Code: F03.91 - Unspecified dementia with behavioral disturbance Brief History Ms. Valderrama is a 66 year-old female of uncertain psychiatric history who presents under a Led[place]ma act by law enforcement alleging that the patient thought that her son was an impostor and threatened to jump from a window. Psychiatric screen reviewed, and I note that the son reported to the screener that the patient has a history of schizophrenia and may have received electroconvulsive therapy in the past but patient's niece knew of no psychiatric history and alleges that son has substance use issues and that this has been a stressor for patient. Reviewing the ED provider notes, the patient apparently suffered an avulsion injury while she was being handcuffed by police , and this required sutures to repair. Reviewing the electronic medical record , it appears this is patient's first visit to [facility]. Patient seen and examined with nurse. Chart reviewed. Case discussed with nursing staff. On my examination today, patient presents as confused and somewhat fearful. She is quite discharge focused. She says that the police arrived at her house, she is unsure why, and restrained her. She believes that police handled her roughly and would like to file a complaint about this. She does seem paranoid and alludes to another person in the home who "had black gloves, an intruder, he's not an [place]," and this may have some resonance to allegations in the Ledesma Act. She denies AVH. Denies SI/HI but seems unreliable to contract for safety. Denies low mood, hopelessness/worthlessness or associated symptoms. I can elicit no hypomanic or manic symptoms. She denies subjective memory deficit, but see below. She denies functional impairment. She presents as fairly disheveled, and there is concern for a self- care deficit. The remainder of the psychiatric ROS is negative. Besides pain associated with the avulsion injury, the patient has no physical complaints. Tobacco Use In Past 30 Days: No Tobacco Past 30 Days Alcohol Use: Monthly or Less Hospital Course Patient was admitted to a locked, inpatient psychiatric unit. A general medical consultation was obtained and the patient was medically cleared prior to discharge. Appropriate precautions were in place throughout patient's hospital stay. Patient was seen and examined on the unit by psychiatry and also visited by counselor. Neuropsychology evaluation was obtained, and this suggested episodic psychiatric illness instead of dementing illness. Psychotropic medications were adjusted. Patient tolerated medication changes well without side effects. Patient had improvement in presenting psychiatric symptomatology during the course of her hospital stay. Patient's behavior improved with the benefit of pharmacologic treatment. There was no evidence of any suicidality or homicidality on the inpatient unit. On the day of discharge : Patient seen and examined with nurse. Chart reviewed. Case discussed in treatment team. Nurse reports no behavioral disturbance overnight. On my examination today, the patient is requesting discharge from the inpatient psychiatric unit today. She denies any suicidal or homicidal ideation, intent or plan on direct questioning and contracts for safety. Mood has stabilized, although the patient has some mild residual distractibility. No depressive or hypomanic/manic symptoms elicited otherwise. She denies audiovisual hallucinations, and I can elicit no delusional material. There is no evidence of any impairment in reality construction. She denies side effects from medications. I have provided extensive psychoeducation regarding her discharge medication regimen and the need for follow-up laboratories to monitor Depakote and ammonia levels. She has no physical complaints. Suicide and violence risk assessment on day of discharge both suggest lower imminent risk, and the patient 's level of function appears to be adequate for outpatient care. The patient does not meet criteria for ongoing involuntary psychiatric hospitalization at this time. I have no basis to retain the patient over her objection any longer. I will arrange for her discharge today home with home health care. Psychiatric follow-up as arranged by counselor. Patient is also to follow-up with primary care. I have instructed the patient not to drive as I suspect that her residual distractibility would be a liability on the road. I have counseled the patient regarding warning signs for need to return to the psychiatric emergency room as part of the general safety plan. Results Blood Pressure 128 / 63 Vital Signs Date Time Temp Pulse Resp B/P (MAP) Pulse Ox O2 Delivery O2 Flow Rate FiO2 03/13/17 06:57 98.0 85 18 128/63 (84) 99 Laboratory Tests Test 03/12/17 07:40 Estimat Glomerular Filtration Rate 72 ML/MIN (>89) Ammonia 34 MCMOL/L (11-32) Valproic Acid (Depakene) Level 33 MCG/ML (50-100) Laboratory Results Test 02/27/17 14:15 03/12/17 07:40 Cholesterol Level 139 MG/DL (120-200) HDL Cholesterol 65.2 MG/DL (40.0-60.0) Hemoglobin A1c 5.2 % (4.3-6.0) LDL Cholesterol 56 MG/DL (0-99) Triglycerides Level 87 MG/DL (42-150) Valproic Acid (Depakene) Level 33 MCG/ML (50-100) Summary of Procedures None done Imaging Last Impressions Head CT 02/26/17 0000 Signed Impressions: Service Date/Time: Sunday, February 26, 2017 16:29 - CONCLUSION: Negative for acute process. Duong Vergara MD FACR Pending results at discharge: No Medications # of Antipsychotic meds at D/C: 1 Approp Antipsych med options 1 - Minimum of three failed multiple trials of monotherapy. 2 - Documented plan to taper to monotherapy due to previous use of multiple meds OR cross-taper in progress at D/C. 3 - Documentation of augmentation of Clozapine. 4 - Justification other than those listed in allowable values 1-3, document here : Discharge Discharge Date: Mar 13, 2017 Discharge Diagnosis: (1) Bipolar I disorder, most recent episode mixed, in partial remission Diagnosis: Principal ICD Code: F31.77 - Bipolar disorder, in partial remission, most recent episode mixed (2) Executive function deficit Diagnosis: Secondary ICD Code: R41.844 - Frontal lobe and executive function deficit Pt Condition on Discharge: Stable Discharge Disposition: Disch w/ Home Health Serv Discharge Instructions Diet Instructions: As Tolerated, No Restrictions Activities you can perform: Weight Bearing as Tim Activities to avoid: Driving Scheduled Appointment: as per counselor's notes New Orders: AMMONIA - 1 Week BASIC METABOLIC PROF - 1 Week DEPAKENE - 1 Week New Medications: Cholecalciferol (Gnp Vitamin D3 Extra Stre) 1,000 Unit Tab 2000 UNITS PO DAILY for Vitamin D supplement for 15 Days, TAB [address] (Divalproex DR) 250 Mg Tabdr 250 MG PO DAILY for Mental Health for 15 Days, #15 TAB [address] (Divalproex DR) 500 Mg Tabdr 500 MG PO HS for Mental Health for 15 Days, TAB 1 Refill Levocarnitine Liq (Carnitor Liq) 1 Gm/10 Ml Soln 3 ML PO TID for Hyperammonemia for 15 Days, ML 1 Refill Olanzapine (Olanzapine) 15 Mg Tab 15 MG PO HS for Mental Health for 15 Days, TAB 1 Refill Olanzapine (Olanzapine) 2.5 Mg Tab 5 MG PO DAILY for Mental Health for 15 Days, #30 TAB 1 Refill Discontinued Medications: Atorvastatin (Atorvastatin) 40 Mg Tab 40 MG PO HS for Cholesterol Management, #30 TAB 0 Refills Discharge Time > 30 minutes Mental Status Examination Appearance: Appropriate Consciousness: Alert Orientation: x4 Motor Activity: Normal gait, Other (No hand tremor, no dystonia, no dyskinesia , no other motor abnormalities noted.) Speech: Unremarkable Language: Adequate Fund of Knowledge: Adequate Attention and Concentration: Adequate (Mildly distractible) Memory: Unremarkable Mood: Appropriate Affect: Appropriate Thought Process & Associations: Intact Thought Content: Appropriate Hallucination Type: None Delusion Type: None Suicidal Ideation: No Suicidal Plan: No Suicidal Intention: No Homicidal Ideation: No Homicidal Plan: No Homicidal Intention: No Insight: Fair Judgment: Adequate (fair) Discharge/Advance Care Plan Health Problems: (1) Bipolar disorder, current episode mixed, severe, with psychotic features (2) Executive function deficit Goals to promote your health * To prevent worsening of your condition and complications * To maintain your health at the optimal level Directions to meet your goals Take your medications as prescribed Follow your dietary instruction Follow activity as directed Keep your appointments as scheduled Take your immunizations and boosters as scheduled If your symptoms worsen call your PCP, if no PCP go to Urgent Care Center or Emergency Room For 02/10 questions related to your inpatient stay or results of tests pending at discharge, please contact Dr. Keyur Ramires at Smoking is Dangerous to Your Health. Avoid second hand smoking Problem Qualifiers (1) Dementia with behavioral disturbance: Qualified Codes: F03.91 - Unspecified dementia with behavioral disturbance Keyur Ramires MD Mar 13, 2017 09:43
--- NOTE | 2017-03-13 09:48 | HHI.FF ---
Face to Face Verification Diagnosis: (1) Bipolar affective disorder, most recent episode mixed (2) Hand laceration (3) Executive function deficit Occupational Therapy Order: Evaluate and Treat Home Health Nursing Order: Medical education Signs/symptoms of disease process Wound care and dressing changes Nursing assessment with vital signs Instructions: Home psychiatric nursing as well. Ditch Rider Order: To Evaluate: Living conditions/environment, Support services Order: To Provide: Long range planning, Community services I have seen patient Mallory Valderrama on 03/13/17. My clinical findings support the need for the requested home health care services because: Need for psychosocial assistance I certify that my clinical findings support that this patient is homebound because: Need for psychosocial assistance Keyur Ramires MD Mar 13, 2017 09:48
--- NOTE | 2017-03-13 14:48 | PD.WCN.NOT ---
Wound Consult Description: Consult for WOUND MANAGEMENT of L wrist avulsion injury per Dr Ramires. Communicated with: Bryan REYNOLDS [id number] Recommendation: Patient discharged prior to Writers visit @[id number] Syl[address] Teixeira [facility] Mar 13, 2017 14:48
== END 2017-03-13 13:10 | disposition home or self-care (01) | DRG 885 ==
LOC: NEPC 17:48 → NEDA 23:19 → H270 02-26 → H260 02-27 18:02 → H250 02-28 22:08 → H260 03-06 16:36
PROVIDERS: ADMIT Psychiatry & Neurology Psychiatry; ATTEND Psychiatry & Neurology Psychiatry
PROC: 0HQGXZZ Repair Left Hand Skin, External Approach (ICD-10-PCS; principal; 2017-02-25)
PROC: 0HQEXZZ Repair Left Lower Arm Skin, External Approach (ICD-10-PCS; 2017-02-25)
DX: F31.64 Bipolar disorder, current episode mixed, severe, with psychotic features (principal); E72.20 Disorder of urea cycle metabolism, unspecified; F02.81 Dementia in other diseases classified elsewhere, unspecified severity, with behavioral disturbance; G30.9 Alzheimer's disease, unspecified; Z91.14 Patient's other noncompliance with medication regimen; L03.114 Cellulitis of left upper limb; D64.9 Anemia, unspecified; S61.512A Laceration without foreign body of left wrist, initial encounter; E55.9 Vitamin D deficiency, unspecified; R68.2 Dry mouth, unspecified; R74.0 Nonspecific elevation of levels of transaminase and lactic acid dehydrogenase [LDH]; E78.5 Hyperlipidemia, unspecified; S61.412A Laceration without foreign body of left hand, initial encounter; X58.XXXA Exposure to other specified factors, initial encounter
CPT/HCPCS: 12006; 70450; 80048; 80053; 80061; 80074; 80164; 80307; 81001; 82140; 82306; 82607; 83036; 83735; 84439; 84443; 85025; 86592; 86703; 87086; 90471; 90714; 93005; 96365; 96372; 96375; J0690; J1200; J1630; J2060; J2250